=== PATIENT | male | born 1975 | race Caucasian/White ===

== ENCOUNTER 2020-07-29 06:57 | Emergency (ER) | payer BC, OTHER ==
[2020-07-29] MEDS ORDERED: ERYTHROMYCIN OP1 GM OP (08:43)
[2021-01-08] MEDS ORDERED: COZAAR25 MG PO (16:03)
[2021-01-08] MEDS ORDERED: IBU800 MG PO (16:03)
[2021-01-08] MEDS ORDERED: LIPITOR20 MG PO (16:04)
[2021-01-11] MEDS ORDERED: HYDROCODON-ACE1 EAC6 PO (14:39)
[2021-01-11] MEDS ORDERED: HYDROCODONE-AC1 EACH PO (14:47)
== END 2020-07-29 08:53 | disposition home or self-care (01) ==
LOC: ER1 06:57
DX: S05.02XA Injury of conjunctiva and corneal abrasion without foreign body, left eye, initial encounter (principal); I10 Essential (primary) hypertension; X58.XXXA Exposure to other specified factors, initial encounter; Y92.009 Unspecified place in unspecified non-institutional (private) residence as the place of occurrence of the external cause
CPT/HCPCS: 99283

== ENCOUNTER 2020-08-27 21:38 | Emergency (ER) | payer BC, OTHER ==
[~2020-08-27 21:38] MED LIST: ERYTHROMYCIN OP1 GM OP
[2020-08-28 03:24] LABS: HEMOGLOBIN 15.1 gm/dl (14.0-17.5); RED BLOOD COUNT 4.83 M/UL (4.20-5.50); WHITE BLOOD COUNT 9.9 K/UL (4.5-11.0)
[2020-08-28 03:43] LABS: BUN/CREATININE RATIO 16 (0-10)
[2020-08-28] MEDS ORDERED: IBUPROFEN800 MG PO (05:47)
[2020-08-28] MEDS ORDERED: TESSALON PERLE100 MG PO (05:47)
[2020-08-28] MEDS ORDERED: PROAIR DIGIHAL90 MCG INH (05:47)
[2021-01-08] MEDS ORDERED: IBU800 MG PO (16:03)
[2021-01-08] MEDS ORDERED: COZAAR25 MG PO (16:03)
[2021-01-08] MEDS ORDERED: LIPITOR20 MG PO (16:04)
[2021-01-11] MEDS ORDERED: HYDROCODON-ACE1 EAC6 PO (14:39)
[2021-01-11] MEDS ORDERED: HYDROCODONE-AC1 EACH PO (14:47)
== END 2020-08-28 06:00 | disposition home or self-care (01) ==
LOC: ER1 21:38
PROVIDERS: Emergency Medicine
DX: J06.9 Acute upper respiratory infection, unspecified (principal); I10 Essential (primary) hypertension; F17.290 Nicotine dependence, other tobacco product, uncomplicated; Z20.822 Contact with and (suspected) exposure to COVID-19
CPT/HCPCS: 36415; 71045; 80053; 84484; 85025; 93005; 96374; 99284; J2405; J7030; U0002

== ENCOUNTER → 2020-09-06 | Outpatient (CLI) | payer BC, OTHER ==
[~2020-09-06] MED LIST changes: +COZAAR25 MG PO; +HYDROCODON-ACE1 EAC6 PO; +HYDROCODONE-AC1 EACH PO; +IBU800 MG PO; +IBUPROFEN800 MG PO; +LIPITOR20 MG PO; +PROAIR DIGIHAL90 MCG INH; +TESSALON PERLE100 MG PO
== END ==
LOC: HEART 5 07:51
DX: R55 Syncope and collapse (principal)

== ENCOUNTER 2020-12-31 19:52 | Emergency (ER) | payer BC, OTHER ==
[~2020-12-31 19:52] MED LIST changes: -COZAAR25 MG PO; -HYDROCODON-ACE1 EAC6 PO; -HYDROCODONE-AC1 EACH PO; -IBU800 MG PO; -LIPITOR20 MG PO
[2020-12-31 21:04] LABS: HEMOGLOBIN 14.2 gm/dl (14.0-17.5); RED BLOOD COUNT 4.67 M/UL (4.20-5.50)
[2020-12-31 21:24] LABS: BUN/CREATININE RATIO 15 (0-10)
[2021-01-08] MEDS ORDERED: COZAAR25 MG PO (16:03)
[2021-01-08] MEDS ORDERED: IBU800 MG PO (16:03)
[2021-01-08] MEDS ORDERED: LIPITOR20 MG PO (16:04)
[2021-01-11] MEDS ORDERED: HYDROCODON-ACE1 EAC6 PO (14:39)
[2021-01-11] MEDS ORDERED: HYDROCODONE-AC1 EACH PO (14:47)
== END 2020-12-31 23:55 | disposition home or self-care (01) ==
LOC: ER1 19:52
PROVIDERS: Physician Assistant Medical
DX: K56.609 Unspecified intestinal obstruction, unspecified as to partial versus complete obstruction (principal); K42.9 Umbilical hernia without obstruction or gangrene; E78.5 Hyperlipidemia, unspecified; I10 Essential (primary) hypertension; Z90.89 Acquired absence of other organs; Z79.899 Other long term (current) drug therapy
CPT/HCPCS: 80053; 81001; 83605; 85025; 96374; 96375; 99284; J2270; J2405; Q9967

== ENCOUNTER → 2021-01-11 | Day surgery (SDC) | payer BC ==
[~2021-01-11] MED LIST changes: +COZAAR25 MG PO; +HYDROCODON-ACE1 EAC6 PO; +HYDROCODONE-AC1 EACH PO; +IBU800 MG PO; +LIPITOR20 MG PO
== END | disposition home or self-care (01) ==
LOC: OR 08:05
DX: K42.9 Umbilical hernia without obstruction or gangrene (principal); I10 Essential (primary) hypertension; R55 Syncope and collapse; G47.33 Obstructive sleep apnea (adult) (pediatric); E78.5 Hyperlipidemia, unspecified; E66.01 Morbid (severe) obesity due to excess calories; Z68.38 Body mass index [BMI] 38.0-38.9, adult
CPT/HCPCS: J0290; J0690; J1100; J2001; J2250; J2405; J2704; J2710; J3010; J7030; J7120

== ENCOUNTER → 2022-02-19 | Day surgery (SDC) | payer BC ==
[~2022-02-19] MED LIST changes: +ATORVASTATIN CA40 MG PO
== END | disposition home or self-care (01) ==
LOC: OR 06:33
DX: Z12.11 Encounter for screening for malignant neoplasm of colon (principal); D12.2 Benign neoplasm of ascending colon; K64.1 Second degree hemorrhoids; I10 Essential (primary) hypertension; E78.00 Pure hypercholesterolemia, unspecified; G47.30 Sleep apnea, unspecified; E66.8 Other obesity; Z68.36 Body mass index [BMI] 36.0-36.9, adult; Z99.89 Dependence on other enabling machines and devices; Z79.899 Other long term (current) drug therapy
CPT/HCPCS: J2704; J7040